=== PATIENT | male | born 2000 | race Caucasian/White ===

== ENCOUNTER 2020-12-17 20:10 | Emergency (ER) | payer SELFPAY ==
[~2020-12-17] VITALS: Ht 162.6 cm; Wt 53.0 kg
[2020-12-17 21:27] VITALS: BP 109/61
== END 2020-12-17 22:30 | disposition left against medical advice (07) ==
LOC: ER 20:10
DX: Z53.21 Procedure and treatment not carried out due to patient leaving prior to being seen by health care provider (principal)